=== PATIENT | male | born 1950 | race Caucasian/White ===

== ENCOUNTER 2017-08-24 08:00 | Outpatient (CLI) | payer OTHER, BC | END 2017-08-24 08:01 | disposition home or self-care (01) | LOC: NAV ULT 08:00 | PROVIDERS: ATTEND Internal Medicine Cardiovascular Disease | DX: R00.2 Palpitations (principal); I08.1 Rheumatic disorders of both mitral and tricuspid valves | CPT/HCPCS: 93306 ==

== ENCOUNTER 2017-08-29 15:47 | Outpatient (CLI) | payer OTHER, BC ==
--- NOTE | 2017-08-29 17:08 | RAD ---
4 VIEW LEFT ELBOW SERIES: Date: 08/29/17 INDICATION: Fall with pain. 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 IMPRESSION: No acute osseous abnormality of the left elbow. POS: [facility]
== END 2017-08-29 15:48 | disposition home or self-care (01) ==
LOC: NAV RAD 15:47
PROVIDERS: ATTEND Internal Medicine
DX: S59.901A Unspecified injury of right elbow, initial encounter (principal)

== ENCOUNTER 2018-03-15 09:03 | Outpatient (CLI) | payer OTHER ==
--- NOTE | 2018-03-15 11:09 | RAD ---
CHEST 2 VIEWS: Date: 03/15/18 HISTORY: Cough. COMPARISON: 03/29/11. FINDINGS: Cardiac silhouette and pulmonary vasculature are unremarkable. Lungs are hyperinflated. Calcified gra nulomata are consistent with healed granulomatous disease. No confluent air space consolidation, pneu mothorax, or significant pleural fluid. Costophrenic angles are excluded from the frontal and lateral views. IMPRESSION: No significant abnormalities are demonstrated. POS: [facility]
== END 2018-03-15 09:04 | disposition home or self-care (01) ==
LOC: NAV RAD 09:03
PROVIDERS: ATTEND Internal Medicine
DX: R05 Cough (principal)
CPT/HCPCS: 71046